=== PATIENT | male | born 1955 | race Hispanic/Latino ===

== ENCOUNTER 2017-02-18 13:28 | Emergency (ER) | payer SELFPAY ==
[~2017-02-18 13:28] MED LIST: NO HOME MEDS
[2017-02-18] MEDS ORDERED: DEBROX6.5 % OT (13:55)
[2017-02-18] MEDS ORDERED: AMOXICILLIN500 MG PO (13:55)
[2017-02-18 14:01] VITALS: BP 152/88
== END 2017-02-18 14:02 | disposition home or self-care (01) | DRG 156 ==
LOC: ED 13:28
DX: H61.22 Impacted cerumen, left ear (principal); H92.22 Otorrhagia, left ear; I10 Essential (primary) hypertension; F17.210 Nicotine dependence, cigarettes, uncomplicated